=== PATIENT | male | born 2000 | race Two or more races ===

== ENCOUNTER 2022-12-07 14:07 | Emergency (ER) | payer MEDICAID ==
[~2022-12-07] VITALS: Ht 175.3 cm; Wt 65.8 kg
--- NOTE | 2022-12-07 14:30 | NUR ---
Pt seen by . Safety measures in place. Will continue to monitor.
[2022-12-07] MEDS ORDERED: FLUT16SP16 BNOSTRILS (14:45)
[2022-12-07] MEDS ORDERED: [UNRECOGNIZED DRUG - CODE] PO (14:45)
--- NOTE | 2022-12-07 14:51 | NUR ---
Patient discharged to home in stable condition. Written and verbal after care instructions given. Patient verbalizes understanding of instructions. Stressed follow up or return to ER for worsening s/s.
== END 2022-12-07 15:00 | disposition home or self-care (01) ==
LOC: ER 14:07
DX: R05.9 Cough, unspecified (principal); R09.81 Nasal congestion; J06.9 Acute upper respiratory infection, unspecified; B97.89 Other viral agents as the cause of diseases classified elsewhere
CPT/HCPCS: A4663